=== PATIENT | male | born 1945 | race African-American/Black ===

== ENCOUNTER 2021-11-08 16:44 | Inpatient (IN) | payer MEDICAID, MEDICARE, OTHER ==
[~2021-11-08] VITALS: Ht 170.2 cm; Wt 63.5 kg
[~2021-11-08 16:44] MED LIST: HYDR25TA PO
[2021-11-08 18:04] LABS: HEMATOCRIT. 49.5 % (42.0-52.0); HEMOGLOBIN. 16.7 g/dL (14.0-18.0); MEAN CORPUSCULAR HEMOGLOBIN 31.3 pg (28.0-32.0); MEAN CORPUSCULAR VOLUME 92.6 fL (80.0-94.0); MEAN PLATELET VOLUME 8.5 fl (7.4-10.4); PLATELET 182 x1000/uL (130-400); RED BLOOD CELL COUNT 5.34 mill/uL (4.7-6.1); RED CELL DISTRIBUTION WIDTH 13.7 % (11.6-14.6)
[2021-11-08 18:08] LABS: CHLORIDE 103 mEq/L (98-107)
[2021-11-08 18:17] LABS: ETHANOL BLOOD < 10 mg/dL
[2021-11-08 18:32] LABS: CREATINE KINASE 2081 IU/L (39-308)
[2021-11-08 18:57] LABS: PLATELET ESTIMATE NORMAL
[2021-11-09 10:15] VITALS: BP 180/80
[2021-11-09 10:21] VITALS: BP 180/80
[2021-11-09] MEDS ORDERED: ONDANSETRON HCL 4MG/2ML INJ IV PRN (10:45)
[2021-11-09] MEDS ORDERED: MAGNESIUM/ALUMINUM HYDROXIDE/SIMETHICONE 30ML UDC PO PRN (10:45)
[2021-11-09] MEDS ORDERED: LORAZEPAM 0.5MG TABLET PO PRN (10:45)
[2021-11-09] MEDS ORDERED: DIPHENHYDRAMINE 50MG/ML VIAL IV PRN (10:45)
[2021-11-09] MEDS ORDERED: NA PHOS,M-B/NA PHOS,DI-BA ENEMA 118ML PR PRN (10:45)
[2021-11-09] MEDS ORDERED: GUAIFENESIN 200MG/10ML SUGAR FREE UDC PO PRN (10:45)
[2021-11-09] MEDS ORDERED: IPRATROPIUM/ALBUTEROL 0.5-3(2.5)MG/3ML NEB NEB PRN (10:45)
[2021-11-09] MEDS ORDERED: CEFTRIAXONE 1 G PREMIX 50 ML IV SCH (10:45)
[2021-11-09] MEDS ORDERED: DOCUSATE SODIUM 100MG CAPSULE PO PRN (10:45)
[2021-11-09] MEDS ORDERED: ACETAMINOPHEN 325MG TABLET PO PRN (10:45)
[2021-11-09] MEDS ORDERED: ACETAMINOPHEN 650MG SUPP PR PRN (10:45)
[2021-11-09] MEDS ORDERED: HYDROCODONE/ACETAMINOPHEN 5/325MG TABLET PO PRN (10:45)
[2021-11-09] MEDS ORDERED: CLONIDINE 0.1MG TABLET PO PRN (10:45)
[2021-11-09] MEDS: DEXT 5%/0.45% NACL 1000ML 1,000 ML IV SCH ×2 (11:54→23:44)
[2021-11-09 12:00] VITALS: BP 176/79
[2021-11-09] MEDS: ENOXAPARIN 40MG/0.4ML SYR SUBCUT SCH (13:20)
[2021-11-09] MEDS: CEFTRIAXONE 1,000 MG in DEXTROSE 5% WATER 50 ML IV SCH (13:20)
[2021-11-09] MEDS: ASPIRIN 81MG EC TABLET PO SCH (13:20)
[2021-11-09 14:27] LABS: INR 1.1
[2021-11-09 16:00] VITALS: BP 142/63
[2021-11-09 17:59] LABS: HEMATOCRIT. 42.5 % (42.0-52.0); HEMOGLOBIN. 14.8 g/dL (14.0-18.0); MEAN CORPUSCULAR HEMOGLOBIN 31.8 pg (28.0-32.0); MEAN CORPUSCULAR VOLUME 91.5 fL (80.0-94.0); MEAN PLATELET VOLUME 8.4 fl (7.4-10.4); PLATELET 147 x1000/uL (130-400); RED BLOOD CELL COUNT 4.65 mill/uL (4.7-6.1); RED CELL DISTRIBUTION WIDTH 13.7 % (11.6-14.6)
[2021-11-09 18:17] LABS: PLATELET ESTIMATE NORMAL
[2021-11-09 18:26] LABS: CHLORIDE 105 mEq/L (98-107)
[2021-11-09 18:37] LABS: CREATINE KINASE 911 IU/L (39-308)
[2021-11-09 18:39] LABS: CREATINE KINASE MB FRACTION 7.5 ng/mL (0.5-3.6)
[2021-11-09 20:00] VITALS: BP 140/75
[2021-11-09] MEDS ORDERED: NALOXONE HCL 0.4MG/ML VIAL IV PRN (21:00)
[2021-11-09] MEDS: FAMOTIDINE 20MG TABLET PO SCH (21:04)
[2021-11-10] VITALS (7 sets, daily range): BP systolic 124–154; BP diastolic 66–77
[2021-11-10 01:39] LABS: CREATINE KINASE MB FRACTION 5.8 ng/mL (0.5-3.6)
[2021-11-10 02:59] LABS: CLARITY URINE CLEAR (CLEAR); COLOR URINE DARK YELLOW (YELLOW); KETONES URINE TRACE (NEGATIVE); LEUKOCYTE ESTERASE URINE NEGATIVE (NEGATIVE); NITRITE URINE NEGATIVE (NEGATIVE); OCCULT BLOOD URINE NEGATIVE (NEGATIVE); PROTEIN URINE 1+ (NEGATIVE); SPECIFIC GRAVITY URINE 1.032 (1.005-1.030)
[2021-11-10 06:52] LABS: CHLORIDE 108 mEq/L (98-107)
[2021-11-10 06:55] LABS: BASOPHILS % 0.5 % (0.0-2.0); EOSINOPHILS % 0.1 % (0.0-5.0); HEMATOCRIT. 43.1 % (42.0-52.0); HEMOGLOBIN. 14.1 g/dL (14.0-18.0); LYMPHOCYTES % 9.7 % (20.0-50.0); MEAN CORPUSCULAR HEMOGLOBIN 30.8 pg (28.0-32.0); MEAN CORPUSCULAR VOLUME 93.8 fL (80.0-94.0); MONOCYTES % 11.6 % (2.0-8.0); NEUTROPHILS % 78.1 % (40.0-76.0); PLATELET 118 x1000/uL (130-400); RED BLOOD CELL COUNT 4.59 mill/uL (4.7-6.1)
[2021-11-10 07:04] LABS: LDL CHOLESTEROL 97 mg/dL (5-100)
[2021-11-10 07:05] LABS: HDL CHOLESTEROL 56 mg/dL (40-59)
[2021-11-10] MEDS: DEXT 5%/0.45% NACL 1000ML 1,000 ML IV SCH ×2 (08:49→18:50)
[2021-11-10] MEDS: ASPIRIN 81MG EC TABLET PO SCH (08:49)
[2021-11-10] MEDS: ENOXAPARIN 40MG/0.4ML SYR SUBCUT SCH (08:49)
[2021-11-10] MEDS: CEFTRIAXONE 1,000 MG in DEXTROSE 5% WATER 50 ML IV SCH (14:33)
[2021-11-10] MEDS: FAMOTIDINE 20MG TABLET PO SCH (21:06)
== END 2021-11-10 22:33 | DRG 557 ==
LOC: ER 16:44 → MICUSO 11-09 00:15 → 5WST 11-09 09:31
PROVIDERS: ADMIT Internal Medicine; ATTEND Internal Medicine
DX: M62.82 Rhabdomyolysis (principal); G93.41 Metabolic encephalopathy; E44.1 Mild protein-calorie malnutrition; J44.9 Chronic obstructive pulmonary disease, unspecified; I10 Essential (primary) hypertension; Z20.822 Contact with and (suspected) exposure to COVID-19; Z60.2 Problems related to living alone; R62.7 Adult failure to thrive; Z86.73 Personal history of transient ischemic attack (TIA), and cerebral infarction without residual deficits; Z68.21 Body mass index [BMI] 21.0-21.9, adult; M79.605 Pain in left leg; W18.30XA Fall on same level, unspecified, initial encounter; R79.89 Other specified abnormal findings of blood chemistry
CPT/HCPCS: 36415; 70551; 71045; 72170; 73552; 80053; 80061; 80320; 81003; 82550; 82553; 82962; 83036; 83880; 84443; 84484; 85025; 87426; 93005; 97162; 99285; J0696; J1650; J7060; G0480